=== PATIENT | female | born 1990 | race African-American/Black ===

== ENCOUNTER 2017-01-19 18:56 | Emergency (ER) | payer MEDICAID ==
[2017-01-19 19:05] VITALS: BP 117/63; BMI 29.8
[2017-01-19] MEDS ORDERED: MOTRIN TAB 800 MG PO ONE ×2 (19:45→19:48)
--- NOTE | 2017-01-19 19:48 | DR.GENAD ---
HPI - PCP Primary Care Physician: NFD - Complaint/Symptoms Chief Complaint:: " I dont know i was at work and just started feeling sick i hurt in my back and throat and feeling nauseas but not throwing up." - Nurses notes reviewed Nurses Notes Review: Yes - Source History Provided: Patient - Mode of Arrival Mode of Arrival: Ambulatory - Timing Onset of Chief Complaint: 01/19/17 Came on: Gradually - Duration Duration: Intermittent How lon Duration: Days - Location Location: throat - Severity Severity: Moderate - Modifying Factors Worsens:: activity - Associated Signs and Symptoms Associated Signs and Symptoms: back achy, nausea PMH - PMH Past Medical History: No Past Surgical History: Yes Surgical History: , Cholecystectomy - Family History History of Family Medical Conditions: Yes Family Medical History: Diabetes Mellitus - Social History Type of Tobacco Use: Cigarettes Alcohol Use: None Do you use any recreational Drugs:: No Lives With: Family Lives Where: Home - infectious screening Have you traveled outside the country in the last 6 months?: No ROS - Review of Systems Constitutional: No Symptoms Reported Eyes: No Symptoms Reported ENTM: Throat Pain Respiratoy: No Symptoms Reported Cardiovascular: No Symptoms Reported Gastrointestinal/Abdominal: Nausea Genitourinary: No Symptoms Reported Neurological: No Symptoms Reported Musculoskeletal: Back (achy) Integumentary: No Symptoms Reported Hematologic/Lymphatic: No Symptoms Reported Endocrine: No Symptoms Reported Psychiatric: No Symptoms Reported All Other Systems: Reviewed and Negative PE - Vital Signs Vitals: Temperature 99.3 F Pulse Rate 92 Respiratory Rate 18 Blood Pressure 117/63 O2 Sat by Pulse Oximetry 99 - General Limitations: No Limitations General Appearance: Alert, In No Apparent Distress - Head Head Exam: Normal Inspection - Eyes Eye exam: Normal Appearance, EOMI. negative: Scleral Icterus, Conjunctival Injection - ENT ENT Exam: Normal Exam, Normal Oropharynx External Ear Exam: Normal External Inspection Nose Exam: Normal Nose Exam Mouth Exam: Normal Inspection - Neck Neck Exam: Normal Inspection, Full ROM, Trachea Midline - Chest Chest Inspection: Normal Inspection - Respiratory Respiratory Exam: Normal Lung Sounds Bilat. negative: Accessory Muscle Use, Respiratory Distress Respiratory Exam: Bilateral Clear to Auscultation - Cardiovascular Cardiovascular Exam: Regular Rate - Extremities Extremities Exam: Normal Inspection, Full ROM - Back Back Exam: Normal Inspection - Neurologic Neurological Exam: Alert, Oriented X3, CN II-XII Intact - Psychiatric Psychiatric Exam: Normal Mood - Skin Skin Exam: Intact, Normal Color ROR - Labs Reviewed Laboratory: Streptococcus Screen Negative (NEGATIVE) 01/19/17 19:58 - Diagnosis Discharge Problem: Pharyngitis Qualifiers: Pharyngitis/tonsillitis etiology: other specified organisms Qualified Code(s): J02.8 - Acute pharyngitis due to other specified organisms - Discharge Plan Condition: Stable Prescriptions: Ibuprofen [Motrin Tab 800 mg] 800 mg PO DAILY PRN #30 tab PRN Reason: Pain/Inflammation Ondansetron HCl [Zofran] 4 - 8 mg PO Q8H PRN #12 tab PRN Reason: Nausea/Vomiting - Follow ups/Referrals Follow ups/Referrals: NFD,None [Primary Care Provider] - 3 days - Instructions
== END 2017-01-19 20:45 | disposition home or self-care (01) ==
LOC: ER 19:12
DX: J02.8 Acute pharyngitis due to other specified organisms (principal)
CPT/HCPCS: 87070; 87880; 99282